=== PATIENT | male | born 1980 | race Caucasian/White ===

== ENCOUNTER 2018-03-31 11:46 | Emergency (ER) | payer SELFPAY ==
[2018-03-31] MEDS ORDERED: NS 1,000 ML IV ONE (12:05)
--- NOTE | 2018-03-31 12:08 | EDPHY ---
H & P Stated Complaint: ALLAN, PALPITATIONS, SOB FOR 1 WEEKS SINCE MOVING TO [place] Time Seen by Provider: 03/31/18 12:00 HPI/ROS: CHIEF COMPLAINT: Easy fatigability and shortness of breath HISTORY OF PRESENT ILLNESS: The patient is a 37-year-old man who moved to [place] 1 week ago from [place]. He states that ever since arriving he has had easy fatigability, shortness of breath with minimal exertion and occasional mild confusion and headaches. He does not have confusion or headache currently. No fever. No sore throat or runny nose or flu-like symptoms. No GI symptoms. He is concerned about altitude sickness. He denies history of cardiac or pulmonary disease. He has been drinking large amounts of water. REVIEW OF SYSTEMS: Constitutional: denies: chills, fever, recent illness, recent injury EENTM: denies: blurred vision, double vision, nose congestion Respiratory: denies: cough, shortness of breath Cardiac: denies: chest pain, irregular heart rate, lightheadedness, palpitations Gastrointestinal/Abdominal: denies: abdominal pain, diarrhea, nausea, vomiting, blood streaked stools Genitourinary: denies: dysuria, frequency, hematuria, pain Musculoskeletal: denies: joint pain, muscle pain Skin: denies: lesions, rash, jaundice, bruising Neurological: denies: headache, numbness, paresthesia, tingling, dizziness, weakness Hematologic/Lymphatic: denies: blood clots, easy bleeding, easy bruising Immunologic/allergic: denies: HIV/AIDS, transplant EXAM: GENERAL: Well-appearing, well-nourished and in no acute distress. HEAD: Atraumatic, normocephalic. EYES: Pupils equal round and reactive to light, extraocular movements intact, sclera anicteric, conjunctiva are normal. ENT: TMs normal, nares patent, oropharynx clear without exudates. Moist mucous membranes. NECK: Normal range of motion, supple without lymphadenopathy or JVD. LUNGS: Breath sounds clear to auscultation bilaterally and equal. No wheezes rales or rhonchi. HEART: Regular rate and rhythm without murmurs, rubs or gallops. ABDOMEN: Soft, nontender, normoactive bowel sounds. No guarding, no rebound. No masses appreciated. BACK: No CVA tenderness, no spinal tenderness, step-offs or deformities EXTREMITIES: Normal range of motion, no pitting or edema. No clubbing or cyanosis. NEUROLOGICAL: Cranial nerves II through XII grossly intact. Normal speech, normal gait. 5/5 strength, normal movement in all extremities, normal sensation PSYCH: Normal mood, normal affect. SKIN: Warm, dry, normal turgor, no visible rashes or lesions. Source: Patient Exam Limitations: No limitations - Medical/Surgical History Hx Asthma: No Hx Chronic Respiratory Disease: No Hx Diabetes: No Hx Cardiac Disease: No Hx Renal Disease: No Hx Cirrhosis: No Hx Alcoholism: No Other PMH: ANXIETY, HEART PALPITATIONS - Social History Smoking Status: Heavy smoker Alcohol Use: Sober Drug Use: None Constitutional: Initial Vital Signs Temperature (C) 36.1 C 03/31/18 11:54 Heart Rate 107 H 03/31/18 11:54 Respiratory Rate 18 03/31/18 11:54 Blood Pressure 168/96 H 03/31/18 11:54 O2 Sat (%) 97 03/31/18 11:54 O2 Delivery Mode Room Air Allergies/Adverse Reactions: No Known Allergies Allergy (Unverified 03/31/18 11:53) Home Medications: Medication Instructions Recorded NK [No Known Home Meds] 03/31/18 Medical Decision Making - Diagnostics EKG Interpretation: An EKG obtained and was read and documented in trace view. Please see trace view for full reading and report. Sinus rhythm, no acute ischemic changes. Imaging Results: Imaging Impressions Chest X-Ray 03/31/18 12:05 Impression: No acute pulmonary disease. Imaging: Discussed imaging studies w/ arabic translator Radiologist ED Course/Re-evaluation: 1:20 p.m. we discussed the patient's test results which are reassuring. He is currently asymptomatic. He does have a history of anxiety and thinks that that may be a component. We discussed acclimatization and follow-up and indications for returning. Differential Diagnosis: Partial list of the Differential diagnosis considered include but were not limited to; dehydration, anxiety and although unlikely based on the history and physical exam, I also considered pneumonia, PE, influenza, acute coronary disease. I discussed these differential diagnoses and the plan with the [ patient] as well as the usual and expected course. The [patient understands] that the diagnosis is provisional and that in medicine we are not always correct and that further workup is often warranted. Usual and customary warnings were given. All of the [patient's] questions were answered. The [ patient was] instructed to return to the emergency department should the symptoms at all worsen or return, otherwise to followup with the physician as we discussed. - Data Points Laboratory Results: Laboratory Results 03/31/18 12:05 03/31/18 03/31/18 03/31/18 12:17 12:05 12:05 WBC 4.87 10^3/uL 10^3/uL (3.80-9.50) RBC 4.68 10^6/uL 10^6/uL (4.40-6.38) Hgb 15.4 g/dL g/dL (13.7-17.5) Hct 43.5 % % (40.0-51.0) MCV 92.9 fL fL (81.5-99.8) MCH 32.9 pg pg (27.9-34.1) MCHC 35.4 g/dL g/dL (32.4-36.7) RDW 13.0 % % (11.5-15.2) Plt Count 318 10^3/uL 10^3/uL (150-400) MPV 9.1 fL fL (8.7-11.7) Neut % (Auto) 64.1 % % (39.3-74.2) Lymph % (Auto) 30.0 % % (15.0-45.0) [place] % (Auto) 4.7 % % (4.5-13.0) Eos % (Auto) 0.4 % L % (0.6-7.6) Baso % (Auto) 0.6 % % (0.3-1.7) Nucleat RBC Rel Count 0.0 % % (0.0-0.2) Absolute Neuts (auto) 3.12 10^3/uL 10^3/uL (1.70-6.50) Absolute Lymphs (auto) 1.46 10^3/uL 10^3/uL (1.00-3.00) Absolute Monos (auto) 0.23 10^3/uL L 10^3/uL (0.30-0.80) Absolute Eos (auto) 0.02 10^3/uL L 10^3/uL (0.03-0.40) Absolute Basos (auto) 0.03 10^3/uL 10^3/uL (0.02-0.10) Absolute Nucleated RBC 0.00 10^3/uL 10^3/uL (0-0.01) Immature Gran % 0.2 % % (0.0-1.1) Immature Gran # 0.01 10^3/uL 10^3/uL (0.00-0.10) D-Dimer < 0.27 ug/mLFEU ug/mLFEU (0.00-0.50) POC Sodium 141 mEq/L mEq/L (135-145) POC Potassium 3.9 mEq/L mEq/L (3.3-5.0) POC Chloride 103.0 mEq/L mEq/L (97-110) POC Total CO2 26 mEq/L mEq/L (22-31) POC BUN 8 mg/dL mg/dL (7-23) POC Creatinine 1.1 mg/dL mg/dL (0.7-1.3) POC Glucose 118 mg/dL H mg/dL (70-100) POC Calcium 9.5 mg/dL mg/dL (8.5-10.4) Medications Given: Discontinued Medications Sodium Chloride (Ns) 1,000 mls @ 0 mls/hr IV EDNOW ONE; Wide Open PRN Reason: Protocol Stop: 03/31/18 12:06 Last Admin: 03/31/18 12:34 Dose: 1,000 mls Point of Care Test Results: Chemistry 03/31/18 12:17 POC Sodium 141 mEq/L mEq/L (135-145) POC Potassium 3.9 mEq/L mEq/L (3.3-5.0) POC Chloride 103.0 mEq/L mEq/L (97-110) POC Total CO2 26 mEq/L mEq/L (22-31) POC BUN 8 mg/dL mg/dL (7-23) POC Creatinine 1.1 mg/dL mg/dL (0.7-1.3) POC Glucose 118 mg/dL H mg/dL (70-100) POC Calcium 9.5 mg/dL mg/dL (8.5-10.4) Departure - Departure Disposition: Home, Routine, Self-Care Clinical Impression: Anxiety Fatigue Qualifiers: Fatigue type: unspecified Qualified Code(s): R53.83 - Other fatigue Condition: Fair Instructions: Fatigue (ED) Referrals: Luciano Herrera MD [[facility] [place]] - As per Instructions
--- NOTE | 2018-03-31 12:46 | CPEKG ---
Heart Rate: 83 RR Interval: 723 P-R Interval: 100 QRSD Interval: 88 QT Interval: 364 QTC Interval: 428 P [place]: 42 QRS [place]: 65 T Wave [place]: 55 EKG Severity - BORDERLINE ECG - EKG Impression: SINUS RHYTHM EKG Impression: shortened p.r interval Electronically Signed By: Shadi Radford 31-Mar-2018 12:48:53
[2018-03-31 13:01] LABS: PLATELET COUNT 318 10^3/uL (150-400)
[2018-03-31 13:34] VITALS: BP 135/87
== END 2018-03-31 13:35 | disposition home or self-care (01) ==
LOC: CED 11:46
DX: R53.83 Other fatigue (principal); F41.9 Anxiety disorder, unspecified; F17.200 Nicotine dependence, unspecified, uncomplicated; E86.9 Volume depletion, unspecified
CPT/HCPCS: 71046-PO; 80048-PO